=== PATIENT | male | born 1955 | race Two or more races ===

== ENCOUNTER → 2020-04-05 | Outpatient (CLI) | payer OTHER ==
[2020-04-05 10:34] LABS: Basophils # (auto) 0.1 10 ^3/uL (0-0.2); Basophils % (auto) 0.9 % (0.0-2.0); Eosinophils # (auto) 0.4 10 ^3/uL (0-0.8); Hematocrit 43.9 % (41.0-53.0); Hemoglobin 14.7 g/dL (13.5-17.5); Lymphocytes # (auto) 1.8 10 ^3/uL (0.4-5.4); Lymphocytes % (auto) 28.7 % (10.0-50.0); Mean Corpuscular Hemoglobin 30.5 pg (28.0-32.0); Mean Corpuscular Hgb Conc. 33.6 g/dL (32.0-36.0); Mean Corpuscular Volume 90.9 fL (80.0-100.0); Monocytes # (auto) 0.5 10 ^3/uL (0-1.3); Monocytes % (auto) 8.9 % (0.0-12.0); Neutrophils # (auto) 3.3 10 ^3/uL (1.6-8.6); Neutrophils % (auto) 54.5 % (37.0-80.0); Platelet Count (auto) 218 10^3/uL (140-450); Red Blood Cells 4.83 10^6/uL (4.5-5.90); Red Cell Distribution Width 13.8 % (11.8-14.3); White Blood Cell 6.1 10^3/uL (4.4-10.8)
[2020-04-05 10:52] LABS: Urine Bacteria NONE SEEN /hpf (None Seen); Urine Blood Negative /uL (Negative); Urine Mucus FEW (None Seen); Urine Specific Gravity 1.021 (1.001-1.035); Urine WBC <1 /hpf (0 - 3)
[2020-04-05 14:18] LABS: Albumin 3.5 g/dL (3.4-5.0); BUN/Creatinine Ratio 17.1; Bilirubin, Total 0.6 mg/dL (0.2-1.0); Calcium 8.5 mg/dL (8.5-10.1); Potassium 3.9 mmol/L (3.5-5.1); Total Protein 7.1 g/dL (6.4-8.2)
== END | disposition home or self-care (01) ==
LOC: LAB 08:43
PROVIDERS: ATTEND Internal Medicine
DX: Z00.00 Encounter for general adult medical examination without abnormal findings (principal)
CPT/HCPCS: 36415; 80053; 80061; 81001; 82274; 82306; 83036; 84443; 85025

== ENCOUNTER → 2020-04-17 | Outpatient (CLI) | payer OTHER | END | disposition home or self-care (01) | LOC: LAB 15:25 | PROVIDERS: ATTEND Internal Medicine | DX: Z12.5 Encounter for screening for malignant neoplasm of prostate (principal); N39.9 Disorder of urinary system, unspecified | CPT/HCPCS: 84153 ==

== ENCOUNTER 2024-09-17 07:11 | Inpatient (IN) | payer OTHER ==
[~2024-09-17] VITALS: Ht 172.7 cm; Wt 78.7 kg
[2024-09-17 07:40] VITALS: PULSE 64; RESP 17; O2SAT 98
--- NOTE | 2024-09-17 07:41 | ED.PDOC ---
GI ASSESSMENT HPI Comments 69 y.o male presents to the ED for a chief complaint of epigastric pain x 3 days associated with constipation and nausea x 2 days. Patient describes pain as sharp, constant, non radiating and has no alleviating factors. Patient mentions taking stool softeners and last bowel movement was one day ago with medication. Patient denies any vomiting, fever, chills, rectal pain, dysuria, hematuria. Patient has a history of colonoscopy with multiple polyps found. Chief Complaint: Abdominal Pain Time Seen by MD: 07:22 Primary Care Provider: unknown Reviewed Notes: Nurses Notes, Medications, Allergies Allergies: Coded Allergies: NO KNOWN ALLERGIES (Unverified , 09/17/24) Information Source: Patient Mode of Arrival: Ambulatory Timing: Days (3) Duration: Since onset Quality: Sharp Vomitus: None Stool: Empty Severity: Moderate Recent: None Recent Hx of: None Pain Location: Epigastric Modifying Factors: Nothing Associated sign and symptoms: Nausea, Abdominal Pain Past Medical History PAST MEDICAL HISTORY: Denies Surgical History (Other): colonoscopy Family History Family History: Reviewed,noncontributory to illness Social History Smoker: Non-Smoker Alcohol: Denies ETOH Use Drugs: Denies Drug Use Lives In: Home Constitutional: denies: chills, diaphoresis, fatigue, fever, malaise, sweats, weakness, others EENTM: denies: blurred vision, double vision, ear bleeding, ear discharge, ear drainage, ear pain, ear ringing, eye pain, eye redness, hearing loss, mouth pain, mouth swelling, nasal discharge, nose bleeding, nose congestion, nose pain, photophobia, tearing, throat pain, throat swelling, voice changes, others Respiratory: denies: cough, hemoptysis, orthopnea, SOB at rest, shortness of breath, SOB with excertion, stridor, wheezing, others Cardiovascular: denies: chest pain, dizzy spells, diaphoresis, Dyspnea on exertion, edema, irregular heart beat, left arm pain, lightheadedness, palpitations, PND, syncope, others Gastrointestinal: reports: abdominal pain, constipated, nausea; denies: abdomen distended, blood streaked bowels, diarrhea, dysphagia, difficulty swallowing, hematemesis, melena, poor appetite, poor fluid intake, rectal bleeding, rectal pain, vomiting, others Genitourinary: denies: burning, dysuria, flank pain, frequency, hematuria, incontinence, penile discharge, penile sore, pain, testicle pain, testicle swelling, urgency, others Neurological: denies: dizziness, fainting, headache, left sided numbness, left sided weakness, numbness, paresthesia, pre-existing deficit, right sided numbness, right sided weakness, seizure, speech problems, tingling, tremors, weakness, others Musculoskeletal: denies: back pain, gout, joint pain, joint swelling, muscle pain, muscle stiffness, neck pain, others Integumetry: denies: bruises, change in color, change in hair/nails, dryness, laceration, lesions, lumps, rash, wounds, others Allergic/Immunocompromised: denies: Difficulty Healing, Frequent Infections, Hives, Itching, others Hematologic/Lymphatic: denies: anemia, blood clots, easy bleeding, easy bruising, swollen glands, others Endocrine: denies: excessive hunger, excessive sweating, excessive thirst, excessive urination, flushing, intolerance to cold, intolerance to heat, unexplained weight gain, unexplained weight loss, others Psychiatric: denies: anxiety, bipolar disorder, depression, hopeless, panic disorder, schizophrenia, sleepless, suicidal, others All Other Systems: Reviewed and Negative Physical Exam General Appearance: Moderate Distress HEENT: Normal ENT Inspection, Pharynx Normal, TMs Normal Neck: Full Range of Motion, Non-Tender, Normal, Normal Inspection Respiratory: Chest Non-Tender, Lungs Clear, No Accessory Muscle Use, No Respiratory Distress, Normal Breath Sounds Cardiovascular: No Edema, No JVD, No Murmur, No Gallop, Normal Peripheral Pulses, Regular Rate/Rhythm Breast Exam: Deferred Gastrointestinal: No Organomegaly, Non Tender, No Pulsatile Mass, Normal Bowel Sounds, Soft Genitalia: Deferred Pelvic: Deferred Rectal: Deferred Extremities: No calf tenderness, Normal capillary refill, Normal inspection, Normal range of motion, Non-tender, No pedal edema Musculoskeletal : Apperance: Normal Neurologic: Alert, frame coverer II-XII nml as Tested, No Motor Deficits, Normal Affect, Normal Mood, No Sensory Deficits Cerebellar Function: Normal Reflexes: Normal Skin: Dry, Normal Color, Warm Peripheral Pulses: 3+ Radial (R), 3+ Radial (L) Lymphatic: No Adenopathy EKG EKG : Pulse Rate (adult): 62 Cardiac Rhythm: NSR Was a procedure done? Was a procedure done?: No GI differential Dx Differential Diagnosis: Cholangitis, Cholecystitis, Constipation, Esophagitis, Gastritis/PUD, Gastroenteritis, Electrolyte Imbalance, Viral X-Ray, Labs, Meds, VS Vital Signs Date Time Temp Pulse Resp B/P (MAP) Pulse Ox O2 Delivery O2 Flow Rate FiO2 09/17/24 09:43 62 18 100 Room Air* 0 09/17/24 09:43 98.1 62 12 153/81 (105) 100 98.1 09/17/24 09:07 65 15 128/64 09/17/24 08:37 64 17 137/74 09/17/24 08:14 62 09/17/24 07:40 98.0 64 17 137/74 (95) 98 98.0 09/17/24 07:40 64 17 98 Room Air* 0 09/17/24 07:34 62 09/17/24 07:30 98.8 64 18 136/75 (95) 98 98.8 Lab Test 09/17/24 08:02 09/17/24 07:20 Range/Units White Blood Count 16.1 H 4.4-10.8 10^3/uL Red Blood Count 4.92 4.5-5.90 10^6/uL Hemoglobin 15.5 13.5-17.5 g/dL Hematocrit 43.7 41.0-53.0 % Mean Corpuscular Volume 88.8 80.0-100.0 fL Mean Corpuscular Hemoglobin 31.5 28.0-32.0 pg Mean Corpuscular Hemoglobin Concent 35.4 32.0-36.0 g/dL Red Cell Distribution Width 14.0 11.8-14.3 % Platelet Count 226 140-450 10^3/uL Mean Platelet Volume 7.8 6.9-10.8 fL Neutrophils (%) (Auto) 83.5 H 37.0-80.0 % Lymphocytes (%) (Auto) 6.6 L 10.0-50.0 % Monocytes (%) (Auto) 9.6 0.0-12.0 % Eosinophils (%) (Auto) 0.2 0.0-7.0 % Basophils (%) (Auto) 0.1 0.0-2.0 % Neutrophils # (Auto) 13.4 H 1.6-8.6 10 ^3/uL Lymphocytes # (Auto) 1.1 0.4-5.4 10 ^3/uL Monocytes # (Auto) 1.5 H 0-1.3 10 ^3/uL Eosinophils # (Auto) 0 0-0.8 10 ^3/uL Basophils # (Auto) 0 0-0.2 10 ^3/uL Nucleated Red Blood Cells 0.1 % Sodium Level 136 136-145 mmol/L Potassium Level 3.7 3.5-5.1 mmol/L Chloride Level 103 98-107 mmol/L Carbon Dioxide Level 24 20-31 mmol/L Anion Gap 9 5-15 Blood Urea Nitrogen 12 9-23 mg/dL Creatinine 0.74 0.700-1.30 mg/dL Glomerular Filtration Rate Calc 99 >90 mL/min BUN/Creatinine Ratio 16.2 10.0-20.0 Serum Glucose 116 H 74-106 mg/dL Calcium Level 9.5 8.7-10.4 mg/dL Total Bilirubin 1.1 H 0.2-1.0 mg/dL Direct Bilirubin 0.3 <0.3 mg/dL Aspartate Amino Transferase (AST) 14 13-40 U/L Alanine Aminotransferase (ALT) 15 7-40 U/L Alkaline Phosphatase 78 46-116 U/L Total Protein 7.1 5.7-8.2 g/dL Albumin 4.4 3.2-4.8 g/dL Lipase 29 12-53 U/L Urine Opiates Screen Pending Urine Fentanyl Screen Pending Urine Barbiturates Screen Pending Urine Phencyclidine Screen Pending Urine Amphetamines Screen Pending Urine Benzodiazepines Screen Pending Urine Cocaine Screen Pending Urine Cannabinoids Screen Pending Current Medications Medications (Trade) Dose Ordered Sig/Miles Route Start Time Stop Time Status Last Admin Sodium Chloride 1,000 ml @ 1,000 mls/hr Q1H ONCE IVB 09/17/24 07:45 09/17/24 08:44 DC 09/17/24 07:55 Morphine Sulfate 4 mg ONCE ONCE IV 09/17/24 08:15 09/17/24 08:16 DC 09/17/24 08:37 Ondansetron HCl (Zofran) 4 mg ONCE ONCE IV 09/17/24 08:15 09/17/24 08:16 DC 09/17/24 08:37 Metronidazole 100 ml @ 100 mls/hr ONCE ONCE IV 09/17/24 09:30 09/17/24 10:29 DC 09/17/24 09:30 Patient alert. Complaining of epigastric pain. EKG reviewed does not show any acute changes. Vitals stable. Answering questions. Establish intravenous access. Was given fluids. Was given Zofran. Was given morphine. He has been in perfect health. Denies any past medical history. He reviewed his history. Explained to the patient. Continue monitoring. CT ABDOMEN AND PELVIS WITHOUT CONTRAST CLINICAL HISTORY: colitis TECHNIQUE: Multiple contiguous axial images of the abdomen and pelvis without intravenous contrast. The images were reformatted degenerate coronal and sagitt al reconstructions. All CT scans at this medical facility are performed using dose modulation techniques as appropriate to a performed exam including the following:Automated exposure control was utilized; adjustment of the MA and/or KV according to patient size; and use of iterative reconstruction technique. Radiation Dose Information: CT Dose: CTDI volume is 14.69 mGy. Dose-length product is 928.7 mGy*cm Comparison: None FINDINGS: Evaluation of the abdomen and pelvis is limited without intravenous contrast. There is a 5 mm calcified gallstone at the origin of the cystic duct. The gallbladder is distended and fluid-filled with surrounding fat stranding. There is no significant pericholecystic fluid. The liver, pancreas, kidneys, adrenal glands, and spleen appear within normal limits. There is no gross evidence of abdominal lymphadenopathy. There is no free fluid or free air. There is a small hiatal hernia. The small and large bowel loops demonstrate normal caliber and distribution. There are diverticula in the colon without evidence of acute diverticulitis. A normal appearing appendix is seen in the right lower quadrant abdomen. The abdominal aorta and IVC appear within normal limits. The bladder appears unremarkable for the degree of distention. Pelvic organ appears within normal limits. There is no gross evidence of a pelvic mass. There is no free fluid collection. Lung bases are clear. There is no acute osseous abnormality. There are degenerative changes in the lumbar spine. There is grade 1 anterolisthesis of L5 on S1. IMPRESSION: 1. 5 mm calcified gallstone at the origin of the cystic duct which is likely obstructing. There is a fluid-filled distended gallbladder with surrounding fat stranding suggesting acute cholecystitis. Clinical correlation is recommended. 2. Small hiatal hernia. 3. Colonic diverticulosis without evidence of acute diverticulitis. HS:Y Time of 1ST Reevaluation: 07:38 Reevaluation 1ST: Unchanged Patient Education/Counseling: Diagnosis, Treatment, Prognosis Family Education/Counseling: No Family Present Departure 1 Departure Time of Disposition: 08:06 Impression: Primary Impression: Acute abdominal pain Disposition: ADMITTED INPATIENT Admit to: Med Surg Condition: Guarded Critical Care Note Critical Care Time?: No Stability Stability form required: No I personally scribed for ROSS LOMBARDI MD ([email or web address]) on 09/17/24 at 07:41. Electronically submitted by Katy Choi ([facility]). I personally scribed for ROSS LOMBARDI MD ([email or web address]) on 09/17/24 at 08:14. Electronically submitted by Katy Choi ([facility]). I personally scribed for ROSS LOMBARDI MD ([email or web address]) on 09/17/24 at 14:40. Electronically submitted by Katy Choi ([facility]). ROSS LOMBARDI MD Sep 17, 2024 07:41
[2024-09-17] MEDS: SODIUM CHLORIDE 0.9% 1,000 ML IVB ONE (07:55)
[2024-09-17 08:24] LABS: Basophils # (auto) 0 10 ^3/uL (0-0.2); Basophils % (auto) 0.1 % (0.0-2.0); Eosinophils # (auto) 0 10 ^3/uL (0-0.8); Eosinophils % (auto) 0.2 % (0.0-7.0); Hematocrit 43.7 % (41.0-53.0); Hemoglobin 15.5 g/dL (13.5-17.5); Lymphocytes # (auto) 1.1 10 ^3/uL (0.4-5.4); Lymphocytes % (auto) 6.6 % (10.0-50.0); Mean Corpuscular Hemoglobin 31.5 pg (28.0-32.0); Mean Corpuscular Hgb Conc. 35.4 g/dL (32.0-36.0); Mean Corpuscular Volume 88.8 fL (80.0-100.0); Monocytes # (auto) 1.5 10 ^3/uL (0-1.3); Monocytes % (auto) 9.6 % (0.0-12.0); Neutrophils # (auto) 13.4 10 ^3/uL (1.6-8.6); Neutrophils % (auto) 83.5 % (37.0-80.0); Nucleated Red Blood Cells % 0.1 %; Platelet Count (auto) 226 10^3/uL (140-450); Red Blood Cells 4.92 10^6/uL (4.5-5.90); White Blood Cell 16.1 10^3/uL (4.4-10.8)
[2024-09-17 08:28] LABS: Chloride 103 mmol/L (98-107); Potassium 3.7 mmol/L (3.5-5.1); Sodium 136 mmol/L (136-145)
[2024-09-17 08:29] LABS: Anion Gap 9 (5-15); Carbon Dioxide 24 mmol/L (20-31)
[2024-09-17 08:30] LABS: Calcium 9.5 mg/dL (8.7-10.4)
[2024-09-17 08:34] LABS: BUN/Creatinine Ratio 16.2 (10.0-20.0); Blood Urea Nitrogen 12 mg/dL (9-23)
[2024-09-17 08:35] LABS: Glucose 116 mg/dL (74-106)
[2024-09-17] MEDS: MORPHINE SULFATE 4 MG/ML SYR/VIAL IV ONE (08:37)
[2024-09-17] MEDS: ONDANSETRON HCL 4 MG/2 ML VIAL IV ONE (08:37)
[2024-09-17 08:47] LABS: Lipase 29 U/L (12-53)
[2024-09-17] MEDS: metroNIDAZOLE 500MG/100ML 100 ML IV ONE (09:30)
[2024-09-17 09:43] VITALS: PULSE 62; RESP 18; O2SAT 100
[2024-09-17 10:50] LABS: Albumin 4.4 g/dL (3.2-4.8); Bilirubin, Total 1.1 mg/dL (0.2-1.0); Total Protein 7.1 g/dL (5.7-8.2)
[2024-09-17 10:51] LABS: Bilirubin, Direct 0.3 mg/dL (<0.3)
--- NOTE | 2024-09-17 11:50 | DVH ---
CT ABDOMEN AND PELVIS WITHOUT CONTRAST CLINICAL HISTORY: colitis TECHNIQUE: Multiple contiguous axial images of the abdomen and pelvis without intravenous contrast. T he images were reformatted degenerate coronal and sagittal reconstructions. All CT scans at this medical facility are performed using dose modulation techniques as appropriate t o a performed exam including the following:Automated exposure control was utilized; adjustment of the MA and/or KV according to patient size; and use of iterative reconstruction technique. Radiation Dose Information: CT Dose: CTDI volume is 14.69 mGy. Dose-length product is 928.7 mGy*cm Comparison: None FINDINGS: Evaluation of the abdomen and pelvis is limited without intravenous contrast. There is a 5 mm calcified gallstone at the origin of the cystic duct. The gallbladder is distended a nd fluid-filled with surrounding fat stranding. There is no significant pericholecystic fluid. The liver, pancreas, kidneys, adrenal glands, and spleen appear within normal limits. There is no gross evidence of abdominal lymphadenopathy. There is no free fluid or free air. There is a small hiatal hernia. The small and large bowel loops demonstrate normal caliber and distr ibution. There are diverticula in the colon without evidence of acute diverticulitis. A normal appea ring appendix is seen in the right lower quadrant abdomen. The abdominal aorta and IVC appear within normal limits. The bladder appears unremarkable for the degree of distention. Pelvic organ appears within normal hagan its. There is no gross evidence of a pelvic mass. There is no free fluid collection. Lung bases are clear. There is no acute osseous abnormality. There are degenerative changes in the lumbar spine. There is grade 1 anterolisthesis of L5 on S1. IMPRESSION: 1. 5 mm calcified gallstone at the origin of the cystic duct which is likely obstructing. There is a fluid-filled distended gallbladder with surrounding fat stranding suggesting acute cholecystitis. Cli nical correlation is recommended. 2. Small hiatal hernia. 3. Colonic diverticulosis without evidence of acute diverticulitis. HS:Y
--- NOTE | 2024-09-17 14:54 | DVH ---
MRI abdomen /MRCP MRI HISTORY: CBD dialation/obstruction, may need to transfer to [facility] COMPARISON: CT abdomen done 09/17/2024 PROCEDURE: Multiplanar multisequence MRI images were obtained of the abdomen without intravenous cont rast Additional MIPS were obtained of the biliary system. FINDINGS: Bile ducts: -Intrahepatic ducts: Non-dilated. -Extrahepatic ducts: Non-dilated. -Common bile duct: Non-dilated. -Filling defects: No filling defects -Stricture: None. Gallbladder: Sludge in the gallbladder. Pancreas: Pancreatic duct: No ductal dilatation. Lesions: None. Liver: Signal intensity: Homogenous. Contour: Smooth. Size: Normal. Lesions: No focal liver lesion. ADDITIONAL FINDINGS: Lung base: Normal. Pancreas: Normal. Spleen:Normal. Bowel: Normal. Adrenal glands:Normal. Kidneys and ureters: Small right renal cysts. Lymph nodes:Normal. Peritoneum:Normal. Vessels: Normal. Abdominal wall: Normal. Bone: No aggressive bone lesions IMPRESSION: 1. There is sludge in the gallbladder. No gallstones are seen. No biliary dilatation is present. 2. If patient shows signs of cholecystitis suggest nuclear medicine hepatobiliary scan
[2024-09-17 15:01] LABS: Cannabinoid Screen, Urine Pos (NEGATIVE); Opiate Scree,Urine Pos (NEGATIVE)
[2024-09-17 15:06] LABS: Amphetamine Screen, Urine Neg (NEGATIVE); Barbiturate Scree,Urine Neg (NEGATIVE); Benzodiazephine Screen, Urine Neg (NEGATIVE); Cocaine Screen, Urine Neg (NEGATIVE); Phencyclidine Screen, Urine Neg (NEGATIVE)
[2024-09-17] MEDS ORDERED: MORPHINE SULFATE INJ 2 MG/ml SYRG IV PRN (15:30)
[2024-09-17] MEDS ORDERED: NITROGLYCERIN 0.4 MG SL TAB SL PRN (15:30)
--- NOTE | 2024-09-17 15:42 | DVHHP2 ---
Admitting Diagnosis: Cholecystitis History of Present Illness HPI Patient is a 69-year-old male with past medical history of BPH on Flomax who presents with several days of epigastric abdominal pain with associated nausea. Patient denies correlation of pain with diet. Patient arrived to the ER with vitals within normal limits. CBC showed leukocytosis of 16.1. CMP was within normal limits with total bilirubin slightly elevated at 1.1. Lipase was non elevated. CT abdomen pelvis without contrast was done which revealed a calcified gallstone at the entrance of the cystic duct. MRCP was done which did not reveal any common bile duct dilation or additional gallstonestones. Patient was admitted for general surgery consultation for cholecystectomy. Review of Systems Constitutional: No symptom reported Cardiovascular: No symptom reported Gastrointestinal: Nausea, Abdominal Pain H&P Exam Vital Signs Vital Signs Date Time Temp Pulse Resp B/P (MAP) Pulse Ox O2 Delivery O2 Flow Rate FiO2 09/17/24 11:30 63 12 154/78 (103) 100 09/17/24 09:43 Room Air* 0 21 09/17/24 09:43 98.1 98.1 Labs/Xrays Labs Test 09/17/24 08:02 09/17/24 07:20 Range/Units White Blood Count 16.1 H 4.4-10.8 10^3/uL Red Blood Count 4.92 4.5-5.90 10^6/uL Hemoglobin 15.5 13.5-17.5 g/dL Hematocrit 43.7 41.0-53.0 % Mean Corpuscular Volume 88.8 80.0-100.0 fL Mean Corpuscular Hemoglobin 31.5 28.0-32.0 pg Mean Corpuscular Hemoglobin Concent 35.4 32.0-36.0 g/dL Red Cell Distribution Width 14.0 11.8-14.3 % Platelet Count 226 140-450 10^3/uL Mean Platelet Volume 7.8 6.9-10.8 fL Neutrophils (%) (Auto) 83.5 H 37.0-80.0 % Lymphocytes (%) (Auto) 6.6 L 10.0-50.0 % Monocytes (%) (Auto) 9.6 0.0-12.0 % Eosinophils (%) (Auto) 0.2 0.0-7.0 % Basophils (%) (Auto) 0.1 0.0-2.0 % Neutrophils # (Auto) 13.4 H 1.6-8.6 10 ^3/uL Lymphocytes # (Auto) 1.1 0.4-5.4 10 ^3/uL Monocytes # (Auto) 1.5 H 0-1.3 10 ^3/uL Eosinophils # (Auto) 0 0-0.8 10 ^3/uL Basophils # (Auto) 0 0-0.2 10 ^3/uL Nucleated Red Blood Cells 0.1 % Sodium Level 136 136-145 mmol/L Potassium Level 3.7 3.5-5.1 mmol/L Chloride Level 103 98-107 mmol/L Carbon Dioxide Level 24 20-31 mmol/L Anion Gap 9 5-15 Blood Urea Nitrogen 12 9-23 mg/dL Creatinine 0.74 0.700-1.30 mg/dL Glomerular Filtration Rate Calc 99 >90 mL/min BUN/Creatinine Ratio 16.2 10.0-20.0 Serum Glucose 116 H 74-106 mg/dL Calcium Level 9.5 8.7-10.4 mg/dL Total Bilirubin 1.1 H 0.2-1.0 mg/dL Direct Bilirubin 0.3 <0.3 mg/dL Aspartate Amino Transferase (AST) 14 13-40 U/L Alanine Aminotransferase (ALT) 15 7-40 U/L Alkaline Phosphatase 78 46-116 U/L Total Protein 7.1 5.7-8.2 g/dL Albumin 4.4 3.2-4.8 g/dL Lipase 29 12-53 U/L Urine Opiates Screen Pos NEGATIVE Urine Fentanyl Screen Neg NEGATIVE Urine Barbiturates Screen Neg NEGATIVE Urine Phencyclidine Screen Neg NEGATIVE Urine Amphetamines Screen Neg NEGATIVE Urine Benzodiazepines Screen Neg NEGATIVE Urine Cocaine Screen Neg NEGATIVE Urine Cannabinoids Screen Pos NEGATIVE Assessment/Plan Primary Diagnosis 1. Cholecystitis Plan - Admit to telemetry - General Surgery, Dr. Duncan consulted - HIDA scan pending - Clear liquid diet - Anticipated surgery 09/19 - Ceftriaxone 1 g IV daily - Pain medication as listed per MAR -Hydralazine 10 mg IV every 6 hours for SBP greater than 180 - Daily CBC and CMP -Full code Plan discussed with: Patient KEVIN LEBLANC Sep 17, 2024 15:42
--- NOTE | 2024-09-17 17:35 | DVHINCON2 ---
Consultation - Surgical Date Seen: Sep 17, 2024 Referring Physician Referring Physician er Reason for Consultation Epigastric pain History of Present Illness History of Present Illness Patient is a 69-year-old male with past medical history of BPH on Flomax who pr esents with several days of epigastric abdominal pain with associated nausea. Patient denies correlation of pain with diet. Patient arrived to the ER with vitals within normal limits. CBC showed leukocytosis of 16.1. CMP was within normal limits with total bilirubin slightly elevated at 1.1. Lipase was nonelevated. CT abdomen pelvis without contrast was done which revealed a calcified gallstone at the entrance of the cystic duct. MRCP was done which did not reveal any common bile duct dilation or additional gallstonestones. Patient is usually regular as regarding bowel movements did require suppository over the weekend. Last BM was yesterday Past Medical/Surgical History Past Medical/Surgical History None Family and Social History Family and Social History Nonsmoker occasional drinker Allergies and medications Allergies: Coded Allergies: NO KNOWN ALLERGIES (Unverified , 09/17/24) Review of systems Review of Systems: HEENT:Normal, CVS:Normal, RESPIRATORY:Normal, GI:Abnormal (As above in HPI), MSK:Normal, NEURO:Normal Examination Vital signs Vital Signs Date Time Temp Pulse Resp B/P (MAP) Pulse Ox O2 Delivery O2 Flow Rate FiO2 09/17/24 17:00 79 14 128/73 (91) 100 09/17/24 09:43 Room Air* 0 21 09/17/24 09:43 98.1 98.1 Medications Current Medications Medications (Trade) Dose Ordered Sig/Miles Route PRN Reason Start Time Stop Time Status Last Admin Nitroglycerin (Ntrostat Sublingual) 0.4 mg Q5MINP PRN SL FOR CHEST PAIN 09/17/24 15:30 Morphine Sulfate 2 mg Q30M PRN IV FOR CHEST PAIN 09/17/24 15:30 Morphine Sulfate 3 mg Q3HPRN PRN IV Severe pain 09/17/24 15:30 Morphine Sulfate 2 mg Q2HPRN PRN IV moderate pain 09/17/24 15:30 Ceftriaxone Sodium 50 ml @ 100 mls/hr DAILY IV 09/18/24 10:00 Laboratory Labs Test 09/17/24 08:02 09/17/24 07:20 Range/Units White Blood Count 16.1 H 4.4-10.8 10^3/uL Red Blood Count 4.92 4.5-5.90 10^6/uL Hemoglobin 15.5 13.5-17.5 g/dL Hematocrit 43.7 41.0-53.0 % Mean Corpuscular Volume 88.8 80.0-100.0 fL Mean Corpuscular Hemoglobin 31.5 28.0-32.0 pg Mean Corpuscular Hemoglobin Concent 35.4 32.0-36.0 g/dL Red Cell Distribution Width 14.0 11.8-14.3 % Platelet Count 226 140-450 10^3/uL Mean Platelet Volume 7.8 6.9-10.8 fL Neutrophils (%) (Auto) 83.5 H 37.0-80.0 % Lymphocytes (%) (Auto) 6.6 L 10.0-50.0 % Monocytes (%) (Auto) 9.6 0.0-12.0 % Eosinophils (%) (Auto) 0.2 0.0-7.0 % Basophils (%) (Auto) 0.1 0.0-2.0 % Neutrophils # (Auto) 13.4 H 1.6-8.6 10 ^3/uL Lymphocytes # (Auto) 1.1 0.4-5.4 10 ^3/uL Monocytes # (Auto) 1.5 H 0-1.3 10 ^3/uL Eosinophils # (Auto) 0 0-0.8 10 ^3/uL Basophils # (Auto) 0 0-0.2 10 ^3/uL Nucleated Red Blood Cells 0.1 % Sodium Level 136 136-145 mmol/L Potassium Level 3.7 3.5-5.1 mmol/L Chloride Level 103 98-107 mmol/L Carbon Dioxide Level 24 20-31 mmol/L Anion Gap 9 5-15 Blood Urea Nitrogen 12 9-23 mg/dL Creatinine 0.74 0.700-1.30 mg/dL Glomerular Filtration Rate Calc 99 >90 mL/min BUN/Creatinine Ratio 16.2 10.0-20.0 Serum Glucose 116 H 74-106 mg/dL Calcium Level 9.5 8.7-10.4 mg/dL Total Bilirubin 1.1 H 0.2-1.0 mg/dL Direct Bilirubin 0.3 <0.3 mg/dL Aspartate Amino Transferase (AST) 14 13-40 U/L Alanine Aminotransferase (ALT) 15 7-40 U/L Alkaline Phosphatase 78 46-116 U/L Total Protein 7.1 5.7-8.2 g/dL Albumin 4.4 3.2-4.8 g/dL Lipase 29 12-53 U/L Urine Opiates Screen Pos NEGATIVE Urine Fentanyl Screen Neg NEGATIVE Urine Barbiturates Screen Neg NEGATIVE Urine Phencyclidine Screen Neg NEGATIVE Urine Amphetamines Screen Neg NEGATIVE Urine Benzodiazepines Screen Neg NEGATIVE Urine Cocaine Screen Neg NEGATIVE Urine Cannabinoids Screen Pos NEGATIVE Examination: GENERAL:Normal, HEENT:Normal, NECK:Normal, LUNGS:Normal, CVS:Normal, ABDOMEN:Abnormal (Mild tenderness in the right upper quadrant as well as the epigastrium. No rebound no guarding), MSK:Normal, SKIN:Normal, NEURO:Normal, :Normal Problem List/Assessment/Plan Problems: (1) Acute abdominal pain Assessment and Plan Abdominal pain/epigastric pain with white count and CT scan demonstrating gallstones. IV antibiotics IV fluids NPO HIDA scan We will continue to follow along we will re-evaluate in morning Plan discussed with Plan discussed with: Patient, Spouse Visit Coding Surgery Date of Service if different f: Sep 17, 2024 Billing Provider: LOIDA WILCOX Jr., MD Surgery Visit Codes: 69633 - INP CONSULT <80 MIN LOIDA WILCOX Jr., MD Sep 17, 2024 17:35
[2024-09-17 20:00] VITALS: PULSE 83
[2024-09-17 21:00] VITALS: BP 126/65; PULSE 66; RESP 16; TEMP 98.7; O2SAT 95
--- NOTE | 2024-09-18 04:21 | ECG ---
[facility] Test Date: 2024-09-17 Test Time: 07:34:08 Pat Name: KRIS GONZALEZ Department: ER Room: [facility]5T B Gender: M Route Jumper: KATALINA : 1955 Requested By: ROSS LOMBARDI Order Number: [id number] Reading MD: Nathaniel Dwyer Measurements Intervals [place] Rate: 62 P: -1 IN: 144 QRS: -28 QRSD: 109 T: 56 QT: 417 QTc: 424 Interpretive Statements Sinus rhythm Borderline left axis deviation RSR' in V1 or V2, probably normal variant Electronically Signed On 09-19-2024 13:05:37 PDT by Nathaniel Dwyer Please click the below link to view image of tracing.
[2024-09-18 05:00] VITALS: BP 111/64; PULSE 68; RESP 18; TEMP 98.4; O2SAT 94
[2024-09-18 07:29] LABS: Basophils # (auto) 0 10 ^3/uL (0-0.2); Basophils % (auto) 0.2 % (0.0-2.0); Eosinophils # (auto) 0 10 ^3/uL (0-0.8); Eosinophils % (auto) 0.1 % (0.0-7.0); Hematocrit 42.5 % (41.0-53.0); Hemoglobin 14.8 g/dL (13.5-17.5); Lymphocytes # (auto) 1.1 10 ^3/uL (0.4-5.4); Lymphocytes % (auto) 6.6 % (10.0-50.0); Mean Corpuscular Hemoglobin 30.8 pg (28.0-32.0); Mean Corpuscular Hgb Conc. 34.9 g/dL (32.0-36.0); Mean Corpuscular Volume 88.2 fL (80.0-100.0); Monocytes # (auto) 1.7 10 ^3/uL (0-1.3); Monocytes % (auto) 10.5 % (0.0-12.0); Neutrophils # (auto) 13.6 10 ^3/uL (1.6-8.6); Neutrophils % (auto) 82.6 % (37.0-80.0); Platelet Count (auto) 210 10^3/uL (140-450); Red Blood Cells 4.82 10^6/uL (4.5-5.90); Red Cell Distribution Width 14.3 % (11.8-14.3); White Blood Cell 16.4 10^3/uL (4.4-10.8)
[2024-09-18 07:32] LABS: Alanine Aminotransferase 12 U/L (7-40); Alkaline Phosphatase 78 U/L (46-116); Anion Gap 9 (5-15); BUN/Creatinine Ratio 12.7 (10.0-20.0); Calcium 9.4 mg/dL (8.7-10.4); Carbon Dioxide 24 mmol/L (20-31); Chloride 102 mmol/L (98-107); Potassium 3.8 mmol/L (3.5-5.1); Total Protein 6.7 g/dL (5.7-8.2)
[2024-09-18 07:33] LABS: Aspartate Aminotransferase 12 U/L (13-40); Bilirubin, Total 1.4 mg/dL (0.2-1.0); Blood Urea Nitrogen 8 mg/dL (9-23); Glucose 110 mg/dL (74-106); Sodium 135 mmol/L (136-145)
[2024-09-18 08:00] VITALS: PULSE 76
[2024-09-18 09:00] VITALS: BP 110/61; PULSE 65; RESP 20; TEMP 98.1; O2SAT 95
[2024-09-18] MEDS: cefTRIAXone 1GM/50ML D5W 50 ML IV SCH (09:38)
[2024-09-18 09:58] LABS: INR 1.14 (0.9-1.15); Partial Thromboplastin Time 32.1 SEC (24.5-34.5); Prothrombin Time 11.9 sec (9.3-11.8)
--- NOTE | 2024-09-18 10:08 | DVHINCON2 ---
DATE OF CONSULTATION: 09/18/2024 SURGICAL CONSULTATION HISTORY OF PRESENT ILLNESS: The patient is a 69-year-old male complaining of epigastric pain for 3 days, accompanied by nausea. REVIEW OF SYSTEMS: All 12 systems reviewed. There is no contributory information to the current illness. The patient has no history of heart, lung, or kidney disease. SOCIAL HISTORY: He is a marijuana smoker and drinks alcohol occasionally (beer every other day). He uses no illicit drugs. ALLERGIES: The patient has no known medicinal allergies. PAST SURGICAL HISTORY: The patient has had no prior abdominal or chest surgeries. PHYSICAL EXAMINATION: GENERAL: Reveals no distress. HEENT: Pupils are equal, round, react to light equally. Sclerae nonicteric. Extraocular motion is intact. Uvula midline. NECK: Trachea midline. Carotids are full without bruits. Jugular veins are collapsed. HEART: Regular rate and rhythm without murmur or gallop. ABDOMEN: Tender in the right upper quadrant. There is no guarding. There is no peritoneal irritation. The patient has no CVA tenderness. EXTREMITIES: No peripheral vascular insufficiency. No venous stasis. LABORATORY DATA: Laboratory evaluation shows leukocytosis of 16.4 with a left shift of 82.6 neutrophils. On his chemistry, the patient has elevated bilirubin of 1.4. Otherwise, liver enzymes are normal. Coags are pending. Imaging was done by means of a CT scan of the abdomen which shows calcified gallstone in the gallbladder with surrounding fat stranding suggesting cholecystitis. An MRCP was done, which shows no evidence of cholecystitis. The ductal system is nondilated. Sludge in the gallbladder. No true gallstones visualized. ASSESSMENT AND PLAN: Biliary colic, probable cholecystitis. Laparoscopic possibly open cholecystectomy. Risks and potential complications explained in detail. MD BERTHA Elias/CATHY TID: [id number] RECEIPT: [id number]
--- NOTE | 2024-09-18 12:40 | DVHPN2 ---
Progress Note - Dictate Date Seen: Sep 18, 2024 Medical Necessity Reason Pt with a Central, PICC or Fol: No Subjective Patient notes pain is improved this AM. Denies having a BM. vital signs Vital Sign Date Time Temp Pulse Resp B/P (MAP) Pulse Ox O2 Delivery O2 Flow Rate FiO2 09/18/24 09:00 98.1 65 20 110/61 (77) 95 98.1 09/18/24 08:00 Room Air* 0 21 Total Intake and Output 09/17/24 09/17/24 09/18/24 15:00 23:00 07:00 Intake Total 100 ml 450 ml Output Total 625 ml Balance 100 ml -175 ml medications Current Medications Medications Dose Ordered Sig/Miles Route Start Time Stop Time Status Last Admin Dose Admin Nitroglycerin 0.4 mg Q5MINP PRN SL 09/17/24 15:30 Morphine Sulfate 2 mg Q30M PRN IV 09/17/24 15:30 Morphine Sulfate 3 mg Q3HPRN PRN IV 09/17/24 15:30 Morphine Sulfate 2 mg Q2HPRN PRN IV 09/17/24 15:30 Ceftriaxone Sodium 50 ml @ 100 mls/hr DAILY IV 09/18/24 10:00 09/18/24 09:38 100 MLS/HR objective General appearance: No acute distress Respiratory: Lungs clear to auscultation. No wheezing, crackles Cardiovascular: Regular rate and rhythm, no murmurs. No edema Abdomen: Soft, nondistended, nontender, bowel sounds present MSK: Normal range of motion. Neuro: Alert, no neurological deficits Psych: Appropriate mood and affect. laboratory and microbiology Laboratory Tests 09/18/24 06:05 Test 09/18/24 06:05 Range/Units Serum Glucose 110 H 74-106 mg/dL Assessment/Plan . Cholecystitis Plan - General Surgery, Dr. Duncan consulted - HIDA scan pending - Clear liquid diet - Anticipated surgery 09/19 - Ceftriaxone 1 g IV daily - Pain medication as listed per MAR -Hydralazine 10 mg IV every 6 hours for SBP greater than 180 - Daily CBC and CMP -NPO at midnight -Full code Plan discussed with: Patient KEVIN LEBLANC DO Sep 18, 2024 12:40
[2024-09-18 17:00] VITALS: BP 117/71; PULSE 63; RESP 20; TEMP 98.2; O2SAT 98
[2024-09-18] MEDS: MORPHINE SULFATE INJ 2 MG/ml SYRG IV PRN (18:07)
[2024-09-18 20:00] VITALS: PULSE 76
[2024-09-18 21:00] VITALS: BP 119/68; PULSE 122; RESP 18; TEMP 98.4; O2SAT 98
[2024-09-19] VITALS (9 sets, daily range): BP systolic 104–162; BP diastolic 59–84; PULSE 51–80; RESP 17–20; TEMP 97.7–98.6; O2SAT 97–100
[2024-09-19 07:19] LABS: Basophils # (auto) 0 10 ^3/uL (0-0.2); Basophils % (auto) 0.3 % (0.0-2.0); Eosinophils # (auto) 0.1 10 ^3/uL (0-0.8); Eosinophils % (auto) 0.6 % (0.0-7.0); Hematocrit 44.9 % (41.0-53.0); Hemoglobin 15.3 g/dL (13.5-17.5); Lymphocytes # (auto) 1.3 10 ^3/uL (0.4-5.4); Lymphocytes % (auto) 11.8 % (10.0-50.0); Mean Corpuscular Hemoglobin 30.5 pg (28.0-32.0); Mean Corpuscular Volume 89.7 fL (80.0-100.0); Monocytes # (auto) 1.2 10 ^3/uL (0-1.3); Monocytes % (auto) 10.7 % (0.0-12.0); Neutrophils # (auto) 8.6 10 ^3/uL (1.6-8.6); Neutrophils % (auto) 76.6 % (37.0-80.0); Nucleated Red Blood Cells % 0.1 %; Platelet Count (auto) 243 10^3/uL (140-450); Red Blood Cells 5.01 10^6/uL (4.5-5.90); Red Cell Distribution Width 13.8 % (11.8-14.3); White Blood Cell 11.2 10^3/uL (4.4-10.8)
[2024-09-19 07:33] LABS: Albumin 4.2 g/dL (3.2-4.8); Anion Gap 9 (5-15); BUN/Creatinine Ratio 16.9 (10.0-20.0); Blood Urea Nitrogen 13 mg/dL (9-23); Calcium 9.8 mg/dL (8.7-10.4); Carbon Dioxide 27 mmol/L (20-31); Chloride 100 mmol/L (98-107); Glucose 96 mg/dL (74-106); Sodium 136 mmol/L (136-145); Total Protein 7.2 g/dL (5.7-8.2)
[2024-09-19 07:44] LABS: Alanine Aminotransferase 172 U/L (7-40); Alkaline Phosphatase 248 U/L (46-116); Aspartate Aminotransferase 145 U/L (13-40); Bilirubin, Total 2.1 mg/dL (0.2-1.0); Potassium 3.3 mmol/L (3.5-5.1)
--- NOTE | 2024-09-19 08:25 | DVH ---
EXAM: XY CHEST PORTABLE Indication: pain Technique: Single frontal view of the chest was obtained Comparison: None FINDINGS: Lines and Tubes: None Lungs: No focal consolidation. Pleura: No effusion. No pneumothorax. Cardiomediastinal contours: Unremarkable Bones: No acute osseous abnormality. IMPRESSION: No acute cardiopulmonary disease.
[2024-09-19] MEDS: BUPIVACAINE HCL 50 ML ONE (10:29)
[2024-09-19] MEDS: LIDOCAINE W/ EPINEPHRINE 1% 20ML VIAL ONE (10:30)
[2024-09-19] MEDS ORDERED: HYDROmorphone HCL 2 MG/ML VL/or syr ONE (10:31)
[2024-09-19] MEDS ORDERED: MIDAZOLAM HCL 2MG/2ML 2ml VIAL (1mg/ml) ONE (10:31)
[2024-09-19] MEDS ORDERED: KETAMINE 50mg/ML 1ml syringe ONE (10:31)
[2024-09-19] MEDS ORDERED: fentaNYL CITRATE 100 MCG/2 ML VL ONE ×2 (10:31→11:53)
[2024-09-19] MEDS ORDERED: DexAMETHasone SOD PHOS 10MG/1ML VIAL INJ ONE (10:32)
[2024-09-19] MEDS ORDERED: ONDANSETRON HCL 4 MG/2 ML VIAL ONE (10:32)
[2024-09-19] MEDS ORDERED: LIDOCAINE 2% (LOCAL ANESTH.) PF 5ml SDV ONE (10:32)
[2024-09-19] MEDS ORDERED: KETOROLAC TROMETH 30 MG/ML 1ML VIAL ONE (10:32)
[2024-09-19] MEDS ORDERED: GLYCOPYRROLATE 0.2 MG/ML 1ML VIAL ONE (10:32)
[2024-09-19] MEDS ORDERED: HYDROCORTISONE SOD SUCC 100 MG/2ML INJ VIAL ONE (10:36)
[2024-09-19] MEDS ORDERED: SUGAMMADEX 200mg/2ml Vial (100MG/ML) IV ONE (11:13)
[2024-09-19] MEDS: D5W/SOD CHL 0.45%/KCL 20MEQ 1,000 ML IV SCH (12:00)
[2024-09-19] MEDS ORDERED: HYDROmorphone HCL 2 MG/ML VL/or syr IV PRN (12:15)
--- NOTE | 2024-09-19 12:49 | DVHOP ---
DATE OF SURGERY: 09/19/2024 PREOPERATIVE DIAGNOSES: Cholelithiasis, cholecystitis, sepsis. POSTOPERATIVE DIAGNOSES: Cholelithiasis, cholecystitis, sepsis. SURGEON: Josh Duncan MD PLUMBER MAINTENANCE: Matt Marshall ANESTHESIA: General endotracheal ANESTHESIOLOGIST: Dr. Holley PROCEDURE: Laparoscopy, laparoscopic cholecystectomy. DESCRIPTION OF PROCEDURE: Under general endotracheal anesthesia with the patient's skin prepped and draped, a supraumbilical incision was made and Veress needle inserted by the hanging drop technique to establish pneumoperitoneum to 15 mmHg pressure by insufflation with carbon dioxide. With the abdomen fully distended, the needle was removed and replaced with a 5 mm trocar port through which a 0-degree viewing laparoscope was inserted and under direct vision, a 5 mm and 10 mm ports inserted through the right anterior axillary line at the umbilicus and through the subxiphoid midline skin respectively. Instrumentation was introduced. Laparoscopy revealed no obvious unexpected pathology. The omentum was caked onto the right lobe of the liver and the gallbladder, which was acutely inflamed. It had to be manipulated by use of a [place] screw. Jaswinder pus spilled out of the gallbladder and was cultured and aspirated. The gallbladder was then dissected free from the omental cake and the gallbladder was placed on tension. The cystic duct and cystic artery were identified, circumferentially dissected, skeletonized and traced into the hepatic or cystic triangle system to minimize the potential for inadvertent injury to the common bile duct subsequent to division of the cystic duct and artery between metallic hemoclips. The gallbladder was resected from a liver bed and removed from the peritoneal cavity by placement in a specimen extraction bag, which was withdrawn through the subxiphoid 10 mm port sites. The right upper quadrant was then profusely irrigated. The irrigant was aspirated. Obvious evidence of any purulent material spilled from the gallbladder was aspirated and irrigated. A 10-mm Iggy Yao drain was placed underneath the right lobe of the liver and exteriorized through the 5-mm trocar port site secured with a 2-0 nylon suture. Following assurance of complete hemostasis, instrumentation was withdrawn, pneumoperitoneum was evacuated, fascial defect closed using #0 Vicryl. The wounds were approximated using Monocryl sutures, Dermabond glue and Steri-Strips. The patient remained stable throughout the procedure, left the operating room following an accurate needle and sponge count. His , Evangelina, was thoroughly informed at [phone]. MD BERTHA Elias/SKINNY/JR TID: [id number] RECEIPT: [id number]
--- NOTE | 2024-09-19 12:50 | DVHPN2 ---
Progress Note - Dictate Date Seen: Sep 19, 2024 Medical Necessity Reason Pt with a Central, PICC or Fol: No Subjective Patient denies having a BM today. vital signs Vital Sign Date Time Temp Pulse Resp B/P (MAP) Pulse Ox O2 Delivery O2 Flow Rate FiO2 09/19/24 12:05 100 Mask 8.0 09/19/24 12:05 100 09/19/24 08:45 98.1 57 17 108/66 (80) 98.1 Total Intake and Output 09/18/24 09/18/24 09/19/24 15:00 23:00 07:00 Intake Total 50 ml 980 ml 800 ml Balance 50 ml 980 ml 800 ml medications Current Medications Medications Dose Ordered Sig/Miles Route Start Time Stop Time Status Last Admin Dose Admin Nitroglycerin 0.4 mg Q5MINP PRN SL 09/17/24 15:30 Morphine Sulfate 2 mg Q30M PRN IV 09/17/24 15:30 Morphine Sulfate 3 mg Q3HPRN PRN IV 09/17/24 15:30 Morphine Sulfate 2 mg Q2HPRN PRN IV 09/17/24 15:30 09/18/24 21:12 2 MG Ceftriaxone Sodium 50 ml @ 100 mls/hr DAILY IV 09/18/24 10:00 09/18/24 09:38 100 MLS/HR Potassium Chloride/Dextrose/ Sod Cl 1,000 ml @ 120 mls/hr Q8H20M IV 09/19/24 12:00 Metronidazole 100 ml @ 100 mls/hr Q8HR IV 09/19/24 14:00 Hydromorphone HCl 0.5 mg Q10M PRN IV 09/19/24 12:15 09/19/24 12:56 objective General appearance: No acute distress Respiratory: Lungs clear to auscultation. No wheezing, crackles Cardiovascular: Regular rate and rhythm, no murmurs. No edema Abdomen: Soft, nondistended, nontender, bowel sounds present MSK: Normal range of motion. Neuro: Alert, no neurological deficits Psych: Appropriate mood and affect. laboratory and microbiology Laboratory Tests 09/19/24 06:16 Test 09/19/24 06:16 Range/Units Serum Glucose 96 74-106 mg/dL Assessment/Plan . Cholecystitis Plan - General Surgery, Dr. Duncan consulted - Anticipated surgery 09/19 - Ceftriaxone 1 g IV daily - Pain medication as listed per MAR -Hydralazine 10 mg IV every 6 hours for SBP greater than 180 - Daily CBC and CMP -DC pending bowel movement and advancement of diet once surgery completed -Full code Plan discussed with: Patient RICKYKRISHKEVIN Harris DO Sep 19, 2024 12:50
[2024-09-19] MEDS ORDERED: metroNIDAZOLE 500MG/100ML 100 ML IV SCH (14:00)
[2024-09-19] MEDS: PIPERACILLIN-TAZOB 3.375GM 100 ML IV SCH (15:45)
[2024-09-19] MEDS: ONDANSETRON HCL 4 MG/2 ML VIAL IV ONE (15:59)
[2024-09-19] MEDS: MORPHINE SULFATE 4 MG/ML SYR/VIAL IV PRN (21:27)
[2024-09-20] VITALS (8 sets, daily range): BP systolic 112–163; BP diastolic 63–83; PULSE 60–105; RESP 17–20; TEMP 97.4–98.1; O2SAT 92–98
[2024-09-20 05:50] LABS: Basophils # (auto) 0 10 ^3/uL (0-0.2); Basophils % (auto) 0.2 % (0.0-2.0); Eosinophils # (auto) 0 10 ^3/uL (0-0.8); Eosinophils % (auto) 0.2 % (0.0-7.0); Hemoglobin 13.6 g/dL (13.5-17.5); Lymphocytes # (auto) 0.7 10 ^3/uL (0.4-5.4); Mean Corpuscular Hemoglobin 30.9 pg (28.0-32.0); Mean Corpuscular Hgb Conc. 34.9 g/dL (32.0-36.0); Mean Corpuscular Volume 88.4 fL (80.0-100.0); Monocytes % (auto) 10.5 % (0.0-12.0); Neutrophils # (auto) 8.1 10 ^3/uL (1.6-8.6); Neutrophils % (auto) 82.1 % (37.0-80.0); Platelet Count (auto) 236 10^3/uL (140-450); Red Blood Cells 4.42 10^6/uL (4.5-5.90); Red Cell Distribution Width 14.2 % (11.8-14.3); White Blood Cell 9.8 10^3/uL (4.4-10.8)
[2024-09-20 06:00] LABS: Albumin 3.8 g/dL (3.2-4.8); Anion Gap 9 (5-15); BUN/Creatinine Ratio 24.6 (10.0-20.0); Blood Urea Nitrogen 15 mg/dL (9-23); Carbon Dioxide 26 mmol/L (20-31); Chloride 102 mmol/L (98-107); Potassium 3.8 mmol/L (3.5-5.1); Sodium 137 mmol/L (136-145); Total Protein 6.5 g/dL (5.7-8.2)
[2024-09-20] MEDS ORDERED: hydrALAZINE HCL 20 MG/ML VL IV PRN (06:00)
--- NOTE | 2024-09-20 06:00 | DVHPN2 ---
Progress Note Date Seen: Sep 20, 2024 Medical Necessity Reason Pt with a Central, PICC or Fol: No Subjective Patient reports: No new complaints Review of Systems: GI:Abnormal Objective vital signs Vital Sign Date Time Temp Pulse Resp B/P (MAP) Pulse Ox O2 Delivery O2 Flow Rate FiO2 09/20/24 05:00 97.9 62 19 163/83 (109) 97 97.9 09/19/24 20:00 Room Air* 0 21 Total Intake and Output 09/19/24 09/19/24 09/20/24 15:00 23:00 07:00 Intake Total 100 ml 0 ml 400 ml Output Total 30 ml 40 ml Balance 70 ml -40 ml 400 ml medications Current Medications Medications Dose Ordered Sig/Miles Route Start Time Stop Time Status Last Admin Dose Admin Nitroglycerin 0.4 mg Q5MINP PRN SL 09/17/24 15:30 Morphine Sulfate 2 mg Q30M PRN IV 09/17/24 15:30 Morphine Sulfate 3 mg Q3HPRN PRN IV 09/17/24 15:30 09/20/24 04:27 3 MG Morphine Sulfate 2 mg Q2HPRN PRN IV 09/17/24 15:30 09/18/24 21:12 2 MG Potassium Chloride/Dextrose/ Sod Cl 1,000 ml @ 120 mls/hr Q8H20M IV 09/19/24 12:00 09/19/24 20:41 120 MLS/HR Piperacillin Sod/ Tazobactam Sod 100 ml @ 25 mls/hr Q6H IV 09/19/24 15:00 09/20/24 03:41 25 MLS/HR Examination: ABDOMEN:Abnormal laboratory and microbiology Test 09/20/24 05:16 Range/Units Serum Glucose Pending Problem List/Assessment/Plan Problem List/Assessment/Plan 1) Acute cholecystitis s/p lap alexandrea, POD 1 plan; on clear liquids, advance diet as per surgery, on IV ABx Zosyn, afebrile, labs for this AM pending, continue supportive care, will follow along medically, dc planning home once cleared by surgery Plan discussed with: Other (n) Dietary Evaluation Review Comments: 1) Advance diet as medically feasible 2) Continue current plan of care Expected Outcomes/Goals: To meet >75% estimated needs Fu 2-3 days SEN POLK MD Sep 20, 2024 06:00
[2024-09-20 06:01] LABS: Bilirubin, Total 0.7 mg/dL (0.2-1.0)
[2024-09-20 06:02] LABS: Alanine Aminotransferase 122 U/L (7-40); Alkaline Phosphatase 196 U/L (46-116); Aspartate Aminotransferase 56 U/L (13-40); Glucose 116 mg/dL (74-106)
--- NOTE | 2024-09-20 14:15 | DVHDS2 ---
New Physician D'charge PN Admitting Diagnosis Admitting Diagnosis cholecystitis Discharge Diagnosis cholecystitis s/p lap alexandrea afib rbr Operations or Procedures lap alexandrea Reason(s) For Hospitalization Surgery Hospital Course 69 M who comes to ER for abd pain. Imaging revealed distended GB with stone a neck of GB. He was admitted started on IV Abx and seen by surgery. He underwent lap alexandrea with gen surgery and his diet was advanced as tolerated. His WBC initially was 16k and now normalized after IV Abx therapy. he was noted to go intp afib rvr and was started on amio gtt and now converted to sinus rhythm. He was seen by cardio and started on PO BB and PO amio and will go home with NOAC. He will be discharged home with levaquin and flagyl PO after surgical clearance, [facility] to arrange for all outpt follow up. Treatment Plan Discharge Condition of Discharge Good Disposition Home Discharge Instructions Diet: Cardiac 2g Na,low cholest Activity: No Restrictions, As Tolerated Medications: see med sheet Follow Up Care Follow Up/Referral: pcp cardio Discharge Statement: "Patient was advised to return to the ER or call 911 if any headaches, dizziness, shortness of breath, chest pain, abdominal pain, bleeding, fevers, or worsening of medical condition. Patient was counseled about treatment plan, medications, possible side effects, patientverbalized understanding. All questions were answered to the best of my ability. This discharge took greater then 30 minutes in planning, reviewing documentation, counseling the patient, and discussing with other team members." SEN POLK MD Sep 20, 2024 14:15
[2024-09-20] MEDS ORDERED: METR-344 PO (14:16)
[2024-09-20] MEDS ORDERED: LEVO500T91 PO (14:16)
--- NOTE | 2024-09-20 14:53 | DVHPN2 ---
Progress Note Date Seen: Sep 20, 2024 Medical Necessity Reason Pt with a Central, PICC or Fol: No Objective vital signs Vital Sign Date Time Temp Pulse Resp B/P (MAP) Pulse Ox O2 Delivery O2 Flow Rate FiO2 09/20/24 13:29 98.0 69 17 119/65 (83) 92 98.0 09/20/24 08:00 Room Air* 0 21 Total Intake and Output 09/19/24 09/19/24 09/20/24 15:00 23:00 07:00 Intake Total 100 ml 0 ml 400 ml Output Total 30 ml 40 ml Balance 70 ml -40 ml 400 ml medications Current Medications Medications Dose Ordered Sig/Miles Route Start Time Stop Time Status Last Admin Dose Admin Nitroglycerin 0.4 mg Q5MINP PRN SL 09/17/24 15:30 Morphine Sulfate 2 mg Q30M PRN IV 09/17/24 15:30 Morphine Sulfate 3 mg Q3HPRN PRN IV 09/17/24 15:30 09/20/24 09:53 3 MG Morphine Sulfate 2 mg Q2HPRN PRN IV 09/17/24 15:30 09/18/24 21:12 2 MG Potassium Chloride/Dextrose/ Sod Cl 1,000 ml @ 120 mls/hr Q8H20M IV 09/19/24 12:00 09/19/24 20:41 120 MLS/HR Piperacillin Sod/ Tazobactam Sod 100 ml @ 25 mls/hr Q6H IV 09/19/24 15:00 09/20/24 09:43 25 MLS/HR Hydralazine HCl 10 mg Q6HP PRN IV 09/20/24 06:00 laboratory and microbiology Laboratory Tests 09/20/24 05:16 Test 09/20/24 05:16 Range/Units Serum Glucose 116 H 74-106 mg/dL Problem List/Assessment/Plan Problem List/Assessment/Plan 09/20/24 AFEBRILE. NORMOTENSIVE, ABDOMEN APPROPRIATELY TENDE, WOUNDS OK, BILI NORMAL WBC IMPROVED. OK TO ADVANCE DIET Plan discussed with: Patient Dietary Evaluation Review Comments: 1) Advance diet as medically feasible 2) Continue current plan of care Expected Outcomes/Goals: To meet >75% estimated needs Fu 2-3 days PEBBLES CUNNINGHAM MD Sep 20, 2024 14:53
[2024-09-20] MEDS ORDERED: LORazepam 2MG/ML-1ML VIAL IV PRN (23:30)
[2024-09-20] MEDS: LORazepam 2MG/ML-1ML VIAL IV ONE (23:40)
[2024-09-21] VITALS (10 sets, daily range): BP systolic 100–119; BP diastolic 57–80; PULSE 57–150; RESP 15–22; TEMP 97.4–98.2; O2SAT 96–98
[2024-09-21] MEDS: METOPROLOL TARTRATE 1MG/1ML-5ML VIAL IV PRN (00:35)
[2024-09-21] MEDS: AMIODARONE BOLUS KIT 100 ML IV ONE ×2 (02:59→03:03)
[2024-09-21] MEDS: AMIODARONE 360mg/200mL PREMIX 200 ML IV ONE (03:03)
[2024-09-21] MEDS: AMIODARONE HCL 200 MG TAB PO ONE (07:23)
[2024-09-21 07:42] LABS: Albumin 3.5 g/dL (3.2-4.8); Anion Gap 9 (5-15); Aspartate Aminotransferase 21 U/L (13-40); BUN/Creatinine Ratio 16.1 (10.0-20.0); Calcium 9.2 mg/dL (8.7-10.4); Carbon Dioxide 26 mmol/L (20-31); Chloride 104 mmol/L (98-107); Glucose 101 mg/dL (74-106); Potassium 3.7 mmol/L (3.5-5.1); Sodium 139 mmol/L (136-145)
[2024-09-21 07:43] LABS: Alanine Aminotransferase 70 U/L (7-40); Alkaline Phosphatase 153 U/L (46-116); Bilirubin, Total 0.5 mg/dL (0.2-1.0); Blood Urea Nitrogen 9 mg/dL (9-23)
[2024-09-21 07:46] LABS: Basophils # (auto) 0 10 ^3/uL (0-0.2); Basophils % (auto) 0.5 % (0.0-2.0); Eosinophils # (auto) 0.1 10 ^3/uL (0-0.8); Eosinophils % (auto) 1.3 % (0.0-7.0); Hematocrit 37.5 % (41.0-53.0); Hemoglobin 13.2 g/dL (13.5-17.5); Lymphocytes # (auto) 1.3 10 ^3/uL (0.4-5.4); Lymphocytes % (auto) 17.4 % (10.0-50.0); Mean Corpuscular Hgb Conc. 35.1 g/dL (32.0-36.0); Mean Corpuscular Volume 88.3 fL (80.0-100.0); Monocytes # (auto) 0.9 10 ^3/uL (0-1.3); Monocytes % (auto) 12.9 % (0.0-12.0); Neutrophils % (auto) 67.9 % (37.0-80.0); Nucleated Red Blood Cells % 0.1 %; Platelet Count (auto) 249 10^3/uL (140-450); Red Blood Cells 4.24 10^6/uL (4.5-5.90); White Blood Cell 7.3 10^3/uL (4.4-10.8)
--- NOTE | 2024-09-21 07:46 | ECG ---
[facility] Test Date: 2024-09-20 Test Time: 23:01:39 Pat Name: KRIS GONZALEZ Department: Room: 0285T B Gender: M Staff Technologist: AM : [id number] Requested By: BLAYNE DESOUZA Order Number: [id number] Reading MD: Nathaniel Dwyer Measurements Intervals [place] Rate: 153 P: 0 W[place]: 0 QRS: -18 QRSD: 100 T: -2 QT: 286 QTc: 457 Interpretive Statements Atrial fibrillation with rapid V-rate Borderline left axis deviation RSR' in V1 or V2, probably normal variant Repolarization abnormality, prob rate related Electronically Signed On 09-23-2024 20:11:03 PDT by Nathaniel Dwyer Please click the below link to view image of tracing.
--- NOTE | 2024-09-21 11:19 | DVHPN2 ---
Progress Note Date Seen: Sep 21, 2024 Medical Necessity Reason Pt with a Central, PICC or Fol: No Objective vital signs Vital Sign Date Time Temp Pulse Resp B/P (MAP) Pulse Ox O2 Delivery O2 Flow Rate FiO2 09/21/24 09:00 97.4 140 16 115/67 (83) 97 97.4 09/20/24 20:00 Room Air* 0 21 Total Intake and Output 09/20/24 09/20/24 09/21/24 15:00 23:00 07:00 Intake Total 100 ml 900 ml 780 ml Output Total 900 ml Balance 100 ml 900 ml -120 ml medications Current Medications Medications Dose Ordered Sig/Miles Route Start Time Stop Time Status Last Admin Dose Admin Nitroglycerin 0.4 mg Q5MINP PRN SL 09/17/24 15:30 Morphine Sulfate 2 mg Q30M PRN IV 09/17/24 15:30 Morphine Sulfate 3 mg Q3HPRN PRN IV 09/17/24 15:30 09/20/24 22:38 3 MG Morphine Sulfate 2 mg Q2HPRN PRN IV 09/17/24 15:30 09/18/24 21:12 2 MG Potassium Chloride/Dextrose/ Sod Cl 1,000 ml @ 120 mls/hr Q8H20M IV 09/19/24 12:00 09/20/24 15:45 120 MLS/HR Piperacillin Sod/ Tazobactam Sod 100 ml @ 25 mls/hr Q6H IV 09/19/24 15:00 09/21/24 11:02 25 MLS/HR Hydralazine HCl 10 mg Q6HP PRN IV 09/20/24 06:00 Metoprolol Tartrate 5 mg Q4HP PRN IV 09/20/24 23:30 09/21/24 00:35 5 MG Amiodarone HCl 200 mg BID PO 09/21/24 22:00 laboratory and microbiology Laboratory Tests 09/21/24 06:16 Test 09/21/24 06:16 Range/Units Serum Glucose 101 74-106 mg/dL Problem List/Assessment/Plan Problem List/Assessment/Plan 09/20/24 AFEBRILE. NORMOTENSIVE, ABDOMEN APPROPRIATELY TENDER, WOUNDS OK, BILI NORMAL WBC IMPROVED. OK TO ADVANCE DIET 09/21/24 NEW ONSET OF ATRIAL FIBRILLATION, PULSE IRREGULARLY IRREGULAR, WOUNDS CLEAN AND WELL APPROXIMATED, ABDOMEN NON DISTENDED, CARDIOLOGY EVALUATION PENDING. Plan discussed with: Patient Dietary Evaluation Review Comments: 1) Advance diet as medically feasible 2) Continue current plan of care Expected Outcomes/Goals: To meet >75% estimated needs Fu 2-3 days PEBBLES CUNNINGHAM MD Sep 21, 2024 11:19
[2024-09-21] MEDS: AMIODARONE 360mg/200mL PREMIX 200 ML IV SCH ×2 (11:40→20:30)
--- NOTE | 2024-09-21 11:48 | DVHINCON2 ---
Date Seen: Sep 21, 2024 Referring Physician MD Chriss Reason for Consultation Afib History of Present Illness This is a 69-year-old male patient who presents to the emergency room with chief complaint of abdominal pain. The patient was found to have acute cholecystitis and underwent a laparoscopic cholecystectomy on 09/19/2024. Cardiology has now been consulted for new onset atrial fibrillation. The patient's initial twelve lead electrocardiogram revealed normal sinus rhythm. 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 The patient was started on IV amiodarone per hospitalist. At time of assessment, the patient remains in atrial fibrillation on front desk monitor. The patient denies any cardiac symptoms such as chest pain, palpitations or shortness of breath. Significant past medical history includes COPD. Past Medical History Past medical history reviewed. No other significant than mentioned above. Past Surgical History Cholecystectomy on 09/19/2024 Family History: Patient reports no known family medical history. Family History Family history reviewed. Social History Patient denies any nicotine or tobacco use Admits to social alcohol use Reports occasional marijuana use Allergies: Coded Allergies: NO KNOWN ALLERGIES (Unverified , 09/17/24) Home Meds Active Scripts Metronidazole (Flagyl) 500 Mg Tab, 1 TAB PO TID, #30 TAB Prov:SEN POLK MD 09/20/24 Levofloxacin Hemihydrate (LEVAQUIN 500 MG) 500 Mg Tab, 1 TAB PO DAILY, #10 TAB Prov:SEN POLK MD 09/20/24 Current Medications Current Medications Medications (Trade) Dose Ordered Sig/Miles Route PRN Reason Start Time Stop Time Status Last Admin Lorazepam (Ativan Inj) 1 mg Q4HR PRN IV SBP>150 09/20/24 23:30 09/21/24 08:47 DC Metoprolol Tartrate (Lopressor) 5 mg Q4HP PRN IV SBP>160 09/20/24 23:30 09/21/24 00:35 Amiodarone HCl (Cordarone Tablet) 200 mg BID PO 09/21/24 22:00 Review of Systems Constitutional: No symptom reported Ears, Nose, & Throat: No symptom reported Eyes: No symptom reported Neurological: No symptoms reported Pulmonary/Respiratory: No symptoms reported Cardiovascular: No symptom reported Gastrointestinal: Abdominal pain Genitourinary: No symptom reported Musculoskeletal: No symptom reported Skin: No symptom reported Psychiatric: No symptom reported Endocrine: No symptom reported Hematologic/Lymphatic: No symptom reported Vital Signs Vital Signs Date Time Temp Pulse Resp B/P (MAP) Pulse Ox O2 Delivery O2 Flow Rate FiO2 09/21/24 09:00 97.4 140 16 115/67 (83) 97 97.4 09/20/24 20:00 Room Air* 0 21 Physical Exam General Appearance: Cooperative. Well-developed. Well-nourished. No acute distress. Pulmonary/Respiratory: Clear, bilateral breaths sounds. Cardiovascular/Chest: Irregular rate and rhythm. Peripheral Pulses: 2+ Radial (R). 2+ Radial (L). 2+ Pedal (R). 2+ Pedal (L) Abdominal Exam: Normal bowel sounds. Ankle Exam: Negative ankle edema Lower extremities: Negative lower extremity edema Neuro/Mental Status: A/OX4, coherent. Thoughts/Psych: Normal thought pattern. Appropriate mood and affect. Good judgment and insight. Appearance: No acute distress. Skin Exam: Normal inspection. Normal color. Warm and dry. Labs/Diagnostic Data Labs Test 09/21/24 06:16 09/18/24 06:08 09/17/24 08:02 09/17/24 07:20 Range/Units White Blood Count 7.3 # 4.4-10.8 10^3/uL Red Blood Count 4.24 L 4.5-5.90 10^6/uL Hemoglobin 13.2 L 13.5-17.5 g/dL Hematocrit 37.5 L 41.0-53.0 % Mean Corpuscular Volume 88.3 80.0-100.0 fL Mean Corpuscular Hemoglobin 31.0 28.0-32.0 pg Mean Corpuscular Hemoglobin Concent 35.1 32.0-36.0 g/dL Red Cell Distribution Width 14.0 11.8-14.3 % Platelet Count 249 140-450 10^3/uL Mean Platelet Volume 8.4 6.9-10.8 fL Neutrophils (%) (Auto) 67.9 37.0-80.0 % Lymphocytes (%) (Auto) 17.4 10.0-50.0 % Monocytes (%) (Auto) 12.9 H 0.0-12.0 % Eosinophils (%) (Auto) 1.3 0.0-7.0 % Basophils (%) (Auto) 0.5 0.0-2.0 % Neutrophils # (Auto) 5.0 1.6-8.6 10 ^3/uL Lymphocytes # (Auto) 1.3 0.4-5.4 10 ^3/uL Monocytes # (Auto) 0.9 0-1.3 10 ^3/uL Eosinophils # (Auto) 0.1 0-0.8 10 ^3/uL Basophils # (Auto) 0 0-0.2 10 ^3/uL Nucleated Red Blood Cells 0.1 % Sodium Level 139 136-145 mmol/L Potassium Level 3.7 3.5-5.1 mmol/L Chloride Level 104 98-107 mmol/L Carbon Dioxide Level 26 20-31 mmol/L Anion Gap 9 5-15 Blood Urea Nitrogen 9 9-23 mg/dL Creatinine 0.56 L 0.700-1.30 mg/dL Glomerular Filtration Rate Calc 107 >90 mL/min BUN/Creatinine Ratio 16.1 10.0-20.0 Serum Glucose 101 74-106 mg/dL Calcium Level 9.2 8.7-10.4 mg/dL Magnesium Level 2.0 1.6-2.6 mg/dL Total Bilirubin 0.5 0.2-1.0 mg/dL Aspartate Amino Transferase (AST) 21 13-40 U/L Alanine Aminotransferase (ALT) 70 H 7-40 U/L Alkaline Phosphatase 153 H 46-116 U/L Total Protein 6.0 5.7-8.2 g/dL Albumin 3.5 3.2-4.8 g/dL Prothrombin Time 11.9 H 9.3-11.8 sec Prothrombin Time INR 1.14 0.9-1.15 Activated Partial Thromboplast Time 32.1 24.5-34.5 SEC Direct Bilirubin 0.3 <0.3 mg/dL Lipase 29 12-53 U/L Urine Opiates Screen Pos NEGATIVE Urine Fentanyl Screen Neg NEGATIVE Urine Barbiturates Screen Neg NEGATIVE Urine Phencyclidine Screen Neg NEGATIVE Urine Amphetamines Screen Neg NEGATIVE Urine Benzodiazepines Screen Neg NEGATIVE Urine Cocaine Screen Neg NEGATIVE Urine Cannabinoids Screen Pos NEGATIVE Microbiology Date/Time Source Procedure Growth Status 09/19/24 11:36 Gallbladder Fluid Gram Stain - Final Resulted 09/19/24 11:36 Gallbladder Fluid Anaerobic Culture - Preliminary Resulted 09/19/24 11:36 Gallbladder Fluid Aerobic Culture - Preliminary Resulted Assessment Atrial fibrillation with rapid ventricular response, new onset Rule out structural heart disease Acute cholecystitis status post cholecystectomy COPD Marijuana use Plan/Recommendation We will continue with the following plan/recommendations (Dr. Dasilva): * Transthoracic echocardiogram to evaluate cardiac function * ?[id number] VASc score: 1 point, HAS-BLED score: 1 point * Rate control with beta-brittany * Continue antiarrhythmic agent, amiodarone * Therapeutic Lovenox, transition to NOAC therapy prior to discharge * Monitor and replete electrolytes as needed, keep potassium greater than four and magnesium greater than two * Close Cardiac surveillance Patient seen and examined at bedside with . Thank you for allowing us to care for this patient. Please call with any questions or concerns. Critical care time spent: 44 minutes This medical document was created using an electronic medical record system with voice recognition software and computerized dictation system. Although this document has been carefully reviewed, there might still be some phonetic and typographical errors. Occasional wrong-word or ``sound-alike substitutions may have occurred due to the inherent limitations of voice recognition software. These areas are purely typographical due to imperfections of the software programs and do not reflect any compromise in the patient's medical care. Please read the chart carefully and recognize, using context, where these substitutions have occurred. Plan discussed with: Patient NYHA Physical activity limitations: NA Date of Service: Sep 21, 2024 Billing Provider: AMANDA SUAREZ Cardiology Common Codes: 80584-LEMIGOD INP/OBS CARE (High) Cardiology Consultation Codes: 53615-[id number] CONSULT <45MIN AMANDA SUAREZ Sep 21, 2024 11:48
[2024-09-21 12:16] LABS: Triglycerides 116 mg/dL (< 150)
[2024-09-21 12:17] LABS: LDL Cholesterol 84 mg/dL (< 100)
[2024-09-21 12:19] LABS: Cholesterol 133 mg/dL (< 200); HDL Cholesterol 27 mg/dL (40-59)
[2024-09-21] MEDS: METOPROLOL TARTRATE 25 MG TAB PO ONE (14:29)
[2024-09-21] MEDS ORDERED: AMIODARONE 360mg/200mL PREMIX 200 ML IV SCH (14:30)
--- NOTE | 2024-09-21 17:16 | DVHSR ---
APPROVED REPORT EXAM: Two-dimensional and M-mode echocardiogram with Doppler and color Doppler. Blood Pressure: 115/68 mmHg INDICATION Dyspnea evaluate cardiac function RISK FACTORS Height: 5'8, Weight: 177 DIMENSIONS LVDd4.4 (3.8-5.7cm)LA (2D)4.0 (1.9-4.0cm)Aortic Root3.8 (2.0-3.7cm) LVDs3.1 (2.5-4.0cm)LA (MM) (1.9-4.0cm)Aortic Cusp Exc2.0 (1.5-2.0cm) EF (%) 55.0 (55-70%)Rt. Atrium3.1 (1.9-4.0cm)Asc. Aorta4.1 cm IVSd1.1 (0.7-1.1cm)RV (D) (1.8-2.4cm) PWd1.1 (0.7-1.1cm) Mitral Valve MitralMitral Stenosis E wave0.84m/sMV Mean GR.1mmHg A wavem/sMV Peak GR.3mmHg E/A ratio0.02D MVAcm2 DECEL [id number] 1/2 Timems Aortic Valve Aortic ValveAortic Stenosis V11.61m/Navjot Mean GR.5mmHg V21.35m/Navjot Peak GR.7mmHg LVOT Diameter2.1 (1.8-2.4cm)Doppler AVA4.13cm2 AI P 1/2 Ogqf646.61ms Pulmonic Valve V21.02m/s Other Information Quality : Technically LimitedRhythm : Technically limited study due to high HR Conclusion LVEF is normal at 55-60% RV size and function normal mildly dilated aortic mario 4.1 cm
--- NOTE | 2024-09-21 21:14 | DVHINCON2 ---
Date Seen: Sep 21, 2024 Referring Physician MD Chriss Reason for Consultation Afib History of Present Illness This is a 69-year-old male with a PMH of COPD who presented to the ED on 09/17 with complaints of abdominal pain. The patient was found to have acute cholecystitis and underwent a laparoscopic cholecystectomy on 09/19/2024. Cardiology has now been consulted for new onset atrial fibrillation. The patient's initial twelve lead electrocardiogram revealed normal sinus rhythm. 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 The patient was started on IV amiodarone per hospitalist. At time of assessment, the patient remains in atrial fibrillation on threat monitoring analyst. The patient denies any cardiac symptoms such as chest pain, palpitations or shortness of breath. Past Medical History Past medical history reviewed. No other significant than mentioned above. Past Surgical History Cholecystectomy on 09/19/2024 Family History: Patient reports no known family medical history. Allergies: Coded Allergies: NO KNOWN ALLERGIES (Unverified , 09/17/24) Home Meds Active Scripts Metronidazole (Flagyl) 500 Mg Tab, 1 TAB PO TID, #30 TAB Prov:SEN POLK MD 09/20/24 Levofloxacin Hemihydrate (LEVAQUIN 500 MG) 500 Mg Tab, 1 TAB PO DAILY, #10 TAB Prov:SEN POLK MD 09/20/24 Current Medications Current Medications Medications (Trade) Dose Ordered Sig/Miles Route PRN Reason Start Time Stop Time Status Last Admin Lorazepam (Ativan Inj) 1 mg Q4HR PRN IV SBP>150 09/20/24 23:30 09/21/24 08:47 DC Metoprolol Tartrate (Lopressor) 5 mg Q4HP PRN IV SBP>160 09/20/24 23:30 09/21/24 11:49 DC 09/21/24 00:35 Amiodarone HCl (Cordarone Tablet) 200 mg BID PO 09/21/24 22:00 Metoprolol Tartrate (Lopressor Tablet) 25 mg BID PO 09/21/24 22:00 Review of Systems Constitutional: No symptom reported Ears, Nose, & Throat: No symptom reported Eyes: No symptom reported Neurological: No symptoms reported Pulmonary/Respiratory: No symptoms reported Cardiovascular: No symptom reported Gastrointestinal: Abdominal pain Genitourinary: No symptom reported Musculoskeletal: No symptom reported Skin: No symptom reported Psychiatric: No symptom reported Endocrine: No symptom reported Hematologic/Lymphatic: No symptom reported Vital Signs Vital Signs Date Time Temp Pulse Resp B/P (MAP) Pulse Ox O2 Delivery O2 Flow Rate FiO2 09/21/24 09:00 97.4 140 16 115/67 (83) 97 97.4 09/21/24 08:00 Room Air* 0 21 Physical Exam GENERAL: Alert and oriented x 3. No acute distress. EYES: PERRL, EOMI. Anicteric. HENT: Moist mucous membranes. LUNGS: Clear to auscultation bilaterally. CARDIOVASCULAR: Regular rate and rhythm. ABDOMEN: Soft, nontender and nondistended. EXTREMITIES: No edema. NEUROLOGIC: No focal neurological deficits. SKIN: Warm, dry. Labs/Diagnostic Data Labs Test 09/21/24 06:16 09/18/24 06:08 09/17/24 08:02 09/17/24 07:20 Range/Units White Blood Count 7.3 # 4.4-10.8 10^3/uL Red Blood Count 4.24 L 4.5-5.90 10^6/uL Hemoglobin 13.2 L 13.5-17.5 g/dL Hematocrit 37.5 L 41.0-53.0 % Mean Corpuscular Volume 88.3 80.0-100.0 fL Mean Corpuscular Hemoglobin 31.0 28.0-32.0 pg Mean Corpuscular Hemoglobin Concent 35.1 32.0-36.0 g/dL Red Cell Distribution Width 14.0 11.8-14.3 % Platelet Count 249 140-450 10^3/uL Mean Platelet Volume 8.4 6.9-10.8 fL Neutrophils (%) (Auto) 67.9 37.0-80.0 % Lymphocytes (%) (Auto) 17.4 10.0-50.0 % Monocytes (%) (Auto) 12.9 H 0.0-12.0 % Eosinophils (%) (Auto) 1.3 0.0-7.0 % Basophils (%) (Auto) 0.5 0.0-2.0 % Neutrophils # (Auto) 5.0 1.6-8.6 10 ^3/uL Lymphocytes # (Auto) 1.3 0.4-5.4 10 ^3/uL Monocytes # (Auto) 0.9 0-1.3 10 ^3/uL Eosinophils # (Auto) 0.1 0-0.8 10 ^3/uL Basophils # (Auto) 0 0-0.2 10 ^3/uL Nucleated Red Blood Cells 0.1 % Sodium Level 139 136-145 mmol/L Potassium Level 3.7 3.5-5.1 mmol/L Chloride Level 104 98-107 mmol/L Carbon Dioxide Level 26 20-31 mmol/L Anion Gap 9 5-15 Blood Urea Nitrogen 9 9-23 mg/dL Creatinine 0.56 L 0.700-1.30 mg/dL Glomerular Filtration Rate Calc 107 >90 mL/min BUN/Creatinine Ratio 16.1 10.0-20.0 Serum Glucose 101 74-106 mg/dL Calcium Level 9.2 8.7-10.4 mg/dL Magnesium Level 2.0 1.6-2.6 mg/dL Total Bilirubin 0.5 0.2-1.0 mg/dL Aspartate Amino Transferase (AST) 21 13-40 U/L Alanine Aminotransferase (ALT) 70 H 7-40 U/L Alkaline Phosphatase 153 H 46-116 U/L Total Protein 6.0 5.7-8.2 g/dL Albumin 3.5 3.2-4.8 g/dL Triglycerides Level 116 < 150 mg/dL Cholesterol Level 133 < 200 mg/dL LDL Cholesterol 84 < 100 mg/dL HDL Cholesterol 27 L 40-59 mg/dL Thyroid Stimulating Hormone (TSH) 0.82 0.55-4.78 uIU/mL Prothrombin Time 11.9 H 9.3-11.8 sec Prothrombin Time INR 1.14 0.9-1.15 Activated Partial Thromboplast Time 32.1 24.5-34.5 SEC Direct Bilirubin 0.3 <0.3 mg/dL Lipase 29 12-53 U/L Urine Opiates Screen Pos NEGATIVE Urine Fentanyl Screen Neg NEGATIVE Urine Barbiturates Screen Neg NEGATIVE Urine Phencyclidine Screen Neg NEGATIVE Urine Amphetamines Screen Neg NEGATIVE Urine Benzodiazepines Screen Neg NEGATIVE Urine Cocaine Screen Neg NEGATIVE Urine Cannabinoids Screen Pos NEGATIVE Microbiology Date/Time Source Procedure Growth Status 09/19/24 11:36 Gallbladder Fluid Gram Stain - Final Resulted 09/19/24 11:36 Gallbladder Fluid Anaerobic Culture - Preliminary Resulted 09/19/24 11:36 Gallbladder Fluid Aerobic Culture - Preliminary Resulted Assessment Atrial fibrillation with rapid ventricular response, new onset. Rule out structural heart disease. Acute cholecystitis status post cholecystectomy. COPD. Marijuana use. Plan/Recommendation I agree with your ongoing assessment and care of plan. Patient has been seen by Mirian Ventura NP on my behalf, her and I discussed the plan with the patient. Transthoracic echocardiogram to evaluate cardiac function. ?[id number] VASc score: 1 point, HAS-BLED score: 1 point. Rate control with beta-brittany. Continue antiarrhythmic agent, amiodarone. Therapeutic Lovenox, transition to NOAC therapy prior to discharge. Monitor and replete electrolytes as needed, keep potassium greater than four and magnesium greater than two. Close Cardiac surveillance. Additional plan as per the hospital course. Plan discussed with: Patient NYHA Physical activity limitations: NA Date of Service: Sep 21, 2024 Billing Provider: ELSIE REED MD Cardiology Common Codes: 13168-HUXKGJOAGX HOSP CARE(High Cardiology Consultation Codes: 93181-PCOXHOYHV CONSULT <45MIN ELSIE REED MD Sep 21, 2024 13:43
[2024-09-21] MEDS: METOPROLOL TARTRATE 25 MG TAB PO SCH (22:00)
[2024-09-21] MEDS: AMIODARONE HCL 200 MG TAB PO SCH (22:39)
[2024-09-22 01:00] VITALS: BP 109/52; PULSE 57; RESP 17; TEMP 97.8; O2SAT 96
[2024-09-22 05:01] VITALS: BP 103/64; PULSE 62; RESP 18; TEMP 98; O2SAT 96
[2024-09-22 06:33] LABS: Basophils # (auto) 0 10 ^3/uL (0-0.2); Basophils % (auto) 0.6 % (0.0-2.0); Eosinophils # (auto) 0.2 10 ^3/uL (0-0.8); Eosinophils % (auto) 2.3 % (0.0-7.0); Hematocrit 39.2 % (41.0-53.0); Hemoglobin 13.4 g/dL (13.5-17.5); Lymphocytes # (auto) 1.4 10 ^3/uL (0.4-5.4); Lymphocytes % (auto) 18.9 % (10.0-50.0); Mean Corpuscular Hemoglobin 30.4 pg (28.0-32.0); Mean Corpuscular Hgb Conc. 34.2 g/dL (32.0-36.0); Mean Corpuscular Volume 88.8 fL (80.0-100.0); Monocytes % (auto) 13.3 % (0.0-12.0); Neutrophils # (auto) 4.9 10 ^3/uL (1.6-8.6); Neutrophils % (auto) 64.9 % (37.0-80.0); Nucleated Red Blood Cells % 0.1 %; Platelet Count (auto) 240 10^3/uL (140-450); Red Blood Cells 4.41 10^6/uL (4.5-5.90); Red Cell Distribution Width 14.1 % (11.8-14.3); White Blood Cell 7.5 10^3/uL (4.4-10.8)
[2024-09-22 06:41] LABS: Albumin 3.3 g/dL (3.2-4.8); Anion Gap 8 (5-15); Aspartate Aminotransferase 21 U/L (13-40); Bilirubin, Total 0.6 mg/dL (0.2-1.0); Blood Urea Nitrogen 13 mg/dL (9-23); Calcium 8.7 mg/dL (8.7-10.4); Carbon Dioxide 27 mmol/L (20-31); Chloride 105 mmol/L (98-107); Glucose 100 mg/dL (74-106); Potassium 3.8 mmol/L (3.5-5.1); Sodium 140 mmol/L (136-145)
[2024-09-22 06:44] LABS: Alanine Aminotransferase 61 U/L (7-40); Alkaline Phosphatase 138 U/L (46-116); Total Protein 5.5 g/dL (5.7-8.2)
[2024-09-22] MEDS ORDERED: AMIO200T13 PO (07:27)
[2024-09-22] MEDS ORDERED: MET25T PO (07:27)
[2024-09-22] MEDS ORDERED: APIX5TAB PO (07:27)
[2024-09-22 08:00] VITALS: PULSE 64; PULSE 97; RESP 20; O2SAT 98
--- NOTE | 2024-09-22 08:52 | DVHPN2 ---
Progress Note Date Seen: Sep 22, 2024 Medical Necessity Reason Pt with a Central, PICC or Fol: No Objective vital signs Vital Sign Date Time Temp Pulse Resp B/P (MAP) Pulse Ox O2 Delivery O2 Flow Rate FiO2 09/22/24 05:01 98.0 62 18 103/64 (77) 96 98.0 09/21/24 20:00 Room Air* 0 21 Total Intake and Output 09/21/24 09/21/24 09/22/24 15:00 23:00 07:00 Intake Total 550 ml 620 ml Output Total 30 ml 700 ml Balance 520 ml -80 ml medications Current Medications Medications Dose Ordered Sig/Miles Route Start Time Stop Time Status Last Admin Dose Admin Nitroglycerin 0.4 mg Q5MINP PRN SL 09/17/24 15:30 Morphine Sulfate 2 mg Q30M PRN IV 09/17/24 15:30 Morphine Sulfate 3 mg Q3HPRN PRN IV 09/17/24 15:30 09/20/24 22:38 3 MG Morphine Sulfate 2 mg Q2HPRN PRN IV 09/17/24 15:30 09/18/24 21:12 2 MG Potassium Chloride/Dextrose/ Sod Cl 1,000 ml @ 120 mls/hr Q8H20M IV 09/19/24 12:00 09/21/24 17:35 120 MLS/HR Piperacillin Sod/ Tazobactam Sod 100 ml @ 25 mls/hr Q6H IV 09/19/24 15:00 09/22/24 03:36 25 MLS/HR Hydralazine HCl 10 mg Q6HP PRN IV 09/20/24 06:00 Amiodarone HCl 200 mg BID PO 09/21/24 22:00 09/21/24 22:39 200 MG Metoprolol Tartrate 25 mg BID PO 09/21/24 22:00 laboratory and microbiology Laboratory Tests 09/22/24 04:58 Test 09/22/24 04:58 Range/Units Serum Glucose 100 74-106 mg/dL Problem List/Assessment/Plan Problem List/Assessment/Plan 09/20/24 AFEBRILE. NORMOTENSIVE, ABDOMEN APPROPRIATELY TENDER, WOUNDS OK, BILI NORMAL WBC IMPROVED. OK TO ADVANCE DIET 09/21/24 NEW ONSET OF ATRIAL FIBRILLATION, PULSE IRREGULARLY IRREGULAR, WOUNDS CLEAN AND WELL APPROXIMATED, ABDOMEN NON DISTENDED, CARDIOLOGY EVALUATION PENDING. 09/22/24 feels better, wounds clean,well approximated, abdomen minimally tender, from surgical point of view he is cleared for discharge, to return to see me in about 10 days. may shower, diet as tolerated Plan discussed with: Patient Dietary Evaluation Review Comments: 1) Advance diet as medically feasible 2) Continue current plan of care Expected Outcomes/Goals: To meet >75% estimated needs Fu 2-3 days PEBBLES CUNNINGHAM MD Sep 22, 2024 08:52
[2024-09-22 09:00] VITALS: BP 108/66; PULSE 64; RESP 18; TEMP 97.5; O2SAT 93
--- NOTE | 2024-09-22 19:26 | DVHPN2 ---
Progress Note - Dictate Date Seen: Sep 22, 2024 Medical Necessity Reason Pt with a Central, PICC or Fol: No Subjective Patient was seen and evaluated in follow up. Patient has no new complaints at this time. Patient denies any cardiac symptoms. Patient is cardiac stable for discharge. Telemetry reviewed. vital signs Vital Sign Date Time Temp Pulse Resp B/P (MAP) Pulse Ox O2 Delivery O2 Flow Rate FiO2 09/22/24 09:09 69 108/66 09/22/24 09:00 97.5 18 93 97.5 09/22/24 08:00 Room Air* 0 21 Total Intake and Output 09/21/24 09/21/24 09/22/24 15:00 23:00 07:00 Intake Total 550 ml 620 ml Output Total 30 ml 700 ml Balance 520 ml -80 ml objective GENERAL: Alert and oriented x 3. No acute distress. EYES: PERRL, EOMI. Anicteric. HENT: Moist mucous membranes. LUNGS: Clear to auscultation bilaterally. CARDIOVASCULAR: Regular rate and rhythm. ABDOMEN: Soft, nontender and nondistended. EXTREMITIES: No edema. NEUROLOGIC: No focal neurological deficits. SKIN: Warm, dry. laboratory and microbiology Laboratory Tests 09/22/24 04:58 Test 09/22/24 04:58 Range/Units Serum Glucose 100 74-106 mg/dL Problem List Atrial fibrillation with rapid ventricular response, new onset. Rule out structural heart disease. Acute cholecystitis status post cholecystectomy. COPD. Marijuana use. Assessment/Plan Continued all current supportive medical care. Metoprolol. Amiodarone. Hydralazine for an SBP > 150. IV antibiotics as ordered. Nitro SL. Morphine for pain management. Additional plan as per the hospital course. Dietary Evaluation Review Comments: 1) Advance diet as medically feasible 2) Continue current plan of care Expected Outcomes/Goals: To meet >75% estimated needs Fu 2-3 days Plan discussed with: Patient ELSIE REED MD Sep 22, 2024 12:47
== END 2024-09-22 11:50 | disposition home or self-care (01) | DRG 418 ==
LOC: ER 07:11 → OVERFLOW 15:28 → TELE-WESTW 17:46
PROVIDERS: ADMIT Student in an Organized Health Care Education/Training Program; ATTEND Student in an Organized Health Care Education/Training Program
PROC: 0FT44ZZ Resection of Gallbladder, Percutaneous Endoscopic Approach (ICD-10-PCS; principal; 2024-09-19 10:49)
DX: K80.00 Calculus of gallbladder with acute cholecystitis without obstruction (principal); R71.0 Precipitous drop in hematocrit; K59.00 Constipation, unspecified; N40.0 Benign prostatic hyperplasia without lower urinary tract symptoms; K57.30 Diverticulosis of large intestine without perforation or abscess without bleeding; F12.90 Cannabis use, unspecified, uncomplicated; J44.9 Chronic obstructive pulmonary disease, unspecified; I48.91 Unspecified atrial fibrillation; Z79.2 Long term (current) use of antibiotics; Z79.899 Other long term (current) drug therapy
CPT/HCPCS: 36415; 71045; 74176; 74181; 80048; 80053; 80061; 80076; 80307; 83690; 83735; 84443; 85025; 85610; 85730; 86850; 86900; 86901; 87070; 87075; 87077; 87186; 87205; 93005; 93306; 96361; 96365; 96375; G0378; J1100; J1885; J2003; J2250; J2405; J2543; J3490